=== PATIENT | female | born 1975 | race Caucasian/White ===

== ENCOUNTER 2017-02-23 04:52 | Emergency (ER) | payer MEDICARE, OTHER ==
[2017-02-23 05:29] LABS: HEMOGLOBIN 14.2 gm/dl (12.3-15.3); RED BLOOD COUNT 4.42 M/UL (4.00-5.10)
[2017-02-23 05:43] LABS: WHITE BLOOD COUNT 1.3 K/UL (4.5-11.0)
[2017-02-23 05:47] LABS: BUN/CREATININE RATIO 40 (0-10)
== END 2017-02-23 10:20 | disposition home or self-care (01) ==
LOC: ER1 04:52
PROVIDERS: Family Medicine
DX: I10 Essential (primary) hypertension (principal); R07.9 Chest pain, unspecified; D69.6 Thrombocytopenia, unspecified; D70.9 Neutropenia, unspecified; R00.1 Bradycardia, unspecified; F17.200 Nicotine dependence, unspecified, uncomplicated; Z88.0 Allergy status to penicillin; Z88.2 Allergy status to sulfonamides; Z79.899 Other long term (current) drug therapy
CPT/HCPCS: 36415; 71010; 80053; 82550; 82553; 83874; 84484; 85025; 93005; 99284; J7050; Q9963

== ENCOUNTER 2021-01-08 16:34 | Emergency (ER) | payer OTHER ==
[2021-01-08 17:29] LABS: RED BLOOD COUNT 2.56 M/UL (4.00-5.10)
[2021-01-08 17:54] LABS: BUN/CREATININE RATIO 24 (0-10)
[2021-05-27] MEDS ORDERED: ONDANSETRON HCL8 MG PO (23:03)
[2021-05-27] MEDS ORDERED: MIDODRINE HCL5 MG PO (23:10)
[2021-05-27] MEDS ORDERED: HUMALOG100 UNIT/3 SC (23:12)
== END 2021-01-08 19:56 | disposition short-term general hospital (02) ==
LOC: ER1 16:34
PROVIDERS: Emergency Medicine
DX: A41.9 Sepsis, unspecified organism (principal); R65.20 Severe sepsis without septic shock; N17.9 Acute kidney failure, unspecified; Z20.822 Contact with and (suspected) exposure to COVID-19; G93.40 Encephalopathy, unspecified; I12.9 Hypertensive chronic kidney disease with stage 1 through stage 4 chronic kidney disease, or unspecified chronic kidney disease; N18.9 Chronic kidney disease, unspecified; Z88.0 Allergy status to penicillin; Z88.2 Allergy status to sulfonamides; Z88.1 Allergy status to other antibiotic agents
CPT/HCPCS: 36415; 36600; 70450; 71045; 80053; 80307; 81001; 82140; 82550; 82553; 82803; 83605; 83690; 83735; 83874; 83880; 84100; 84439; 84443; 84484; 85025; 85610; 85730; 87040; 87086; 93005; 96365; 96375; 99285; G0480; J0692; J1335; J7030; U0002

== ENCOUNTER 2021-05-27 11:55 | Inpatient (IN) | payer MEDICARE, OTHER ==
[~2021-05-27] VITALS: Ht 172.7 cm; Wt 125.2 kg
[2021-05-27 12:10] LABS: HEMOGLOBIN 11.1 gm/dl (12.3-15.3); RED BLOOD COUNT 3.48 M/UL (4.00-5.10); WHITE BLOOD COUNT 2.2 K/UL (4.5-11.0)
[2021-05-27 17:28] LABS: BODY FLUID SOURCE ASCITES
[2021-05-27 17:29] LABS: MONONUCLEAR CELLS 93 %; POLYMORPHONUCLEAR 7 %; RBC (AUTOMATED) 9600 10^6; WBC (AUTOMATED) 56 10^3
[2021-05-27] MEDS ORDERED: LANTUS100 UNIT/1 SQ (23:01)
[2021-05-27] MEDS ORDERED: IPRAT-ALBUT 0.5-3 ML INH (23:01)
[2021-05-27] MEDS ORDERED: SPIRONOLACTONE100 MG PO (23:02)
[2021-05-27] MEDS ORDERED: BUMETANIDE1 MG PO (23:02)
[2021-05-27] MEDS ORDERED: PHENERGAN 25 MG25 M1 PO (23:02)
[2021-05-27] MEDS ORDERED: CLARITIN10 M2 PO (23:03)
[2021-05-27] MEDS ORDERED: ACIDOPHILUS1 EAC3 PO (23:04)
[2021-05-27] MEDS ORDERED: MIRALAX17 GM PO (23:04)
[2021-05-27] MEDS ORDERED: GABAPENTIN600 MG PO (23:05)
[2021-05-27] MEDS ORDERED: XIFAXAN550 MG PO (23:05)
[2021-05-27] MEDS ORDERED: MS CONTIN30 MG PO (23:05)
[2021-05-27] MEDS ORDERED: LACTULOSE10 GM/15 M PO (23:07)
[2021-05-27] MEDS ORDERED: PROTONIX 40 MG40 M1 PO (23:07)
[2021-05-27] MEDS ORDERED: CLONIDINE HCL0.2 MG PO (23:07)
[2021-05-27] MEDS ORDERED: METOCLOPRAMIDE H5 MG PO (23:08)
[2021-05-27] MEDS ORDERED: K-TAB ER10 MEQ PO (23:09)
[2021-05-27] MEDS ORDERED: OPSUMIT10 MG PO (23:11)
[2021-05-27] MEDS ORDERED: ADEMPAS2.5 MG PO (23:11)
[2021-05-28 07:43] LABS: HEMOGLOBIN 9.6 gm/dl (12.3-15.3); RED BLOOD COUNT 3.05 M/UL (4.00-5.10); WHITE BLOOD COUNT 2.5 K/UL (4.5-11.0)
[2021-05-28] MEDS ORDERED: ROPINIROLE HCL2 MG PO (23:11)
== END 2021-05-28 19:30 | disposition left against medical advice (07) | DRG 441 ==
LOC: ER1 11:55 → PROG CARE 17:52 → CDU 17:52 → PROG CARE 22:04
PROVIDERS: Family Medicine; ADMIT Internal Medicine
PROC: 5A09357 Assistance with Respiratory Ventilation, Less than 24 Consecutive Hours, Continuous Positive Airway Pressure (ICD-10-PCS; principal; 2021-05-27)
DX: K72.90 Hepatic failure, unspecified without coma (principal); G93.41 Metabolic encephalopathy; G92 Toxic encephalopathy; J96.21 Acute and chronic respiratory failure with hypoxia; D61.818 Other pancytopenia; I85.00 Esophageal varices without bleeding; E66.2 Morbid (severe) obesity with alveolar hypoventilation; E87.2 Acidosis; N17.9 Acute kidney failure, unspecified; Z68.41 Body mass index [BMI] 40.0-44.9, adult; Z53.29 Procedure and treatment not carried out because of patient's decision for other reasons; K74.69 Other cirrhosis of liver; I95.9 Hypotension, unspecified; E11.9 Type 2 diabetes mellitus without complications; E11.40 Type 2 diabetes mellitus with diabetic neuropathy, unspecified; E88.09 Other disorders of plasma-protein metabolism, not elsewhere classified; R79.1 Abnormal coagulation profile; T40.2X5A Adverse effect of other opioids, initial encounter; Z79.4 Long term (current) use of insulin; Z88.0 Allergy status to penicillin; Z90.710 Acquired absence of both cervix and uterus; Z72.0 Tobacco use; Z90.81 Acquired absence of spleen; Y92.89 Other specified places as the place of occurrence of the external cause
CPT/HCPCS: 0240U; 36415; 36600; 70450; 71250; 80053; 80307; 81001; 82140; 82550; 82553; 82803; 82962; 83605; 83690; 83735; 83874; 84484; 84703; 85025; 85610; 87040; 87070; 87205; 89051; 94660; 94760; 99285; J1956; J2310; P9047; U0002

== ENCOUNTER 2021-07-21 13:59 | Inpatient (IN) | payer MEDICARE, OTHER ==
[~2021-07-21] VITALS: Ht 172.7 cm; Wt 128.0 kg
[~2021-07-21 13:59] MED LIST: ACIDOPHILUS1 EAC3 PO; ADEMPAS2.5 MG PO; BUMETANIDE1 MG PO; CLARITIN10 M2 PO; CLONIDINE HCL0.2 MG PO; GABAPENTIN600 MG PO; IPRAT-ALBUT 0.5-3 ML INH; K-TAB ER10 MEQ PO; LACTULOSE10 GM/15 M PO; LANTUS100 UNIT/1 SQ; METOCLOPRAMIDE H5 MG PO; MIRALAX17 GM PO; MS CONTIN30 MG PO; OPSUMIT10 MG PO; PHENERGAN 25 MG25 M1 PO; PROTONIX 40 MG40 M1 PO; ROPINIROLE HCL2 MG PO; SPIRONOLACTONE100 MG PO; XIFAXAN550 MG PO
[2021-07-21 14:49] LABS: HEMOGLOBIN 9.6 gm/dl (12.3-15.3); RED BLOOD COUNT 2.98 M/UL (4.00-5.10); WHITE BLOOD COUNT 4.2 K/UL (4.5-11.0)
[2021-07-21 18:13] LABS: HEMOGLOBIN 9.2 gm/dl (12.3-15.3); RED BLOOD COUNT 2.89 M/UL (4.00-5.10)
[2021-07-21 18:22] LABS: WHITE BLOOD COUNT 10.8 K/UL (4.5-11.0)
[2021-07-22 03:59] LABS: HEMOGLOBIN 8.1 gm/dl (12.3-15.3)
[2021-07-22 04:00] LABS: RED BLOOD COUNT 2.53 M/UL (4.00-5.10)
[2021-07-22] MEDS ORDERED: ONDANSETRON HCL8 MG PO (12:50)
[2021-07-22] MEDS ORDERED: MAGOX 400400 MG PO (12:51)
[2021-07-22] MEDS ORDERED: MIDODRINE HCL5 MG PO (23:10)
[2021-07-22] MEDS ORDERED: NOVOLOG FL100 UNIT/1 INJ (23:12)
[2021-07-23 05:19] LABS: HEMOGLOBIN 8.1 gm/dl (12.3-15.3); RED BLOOD COUNT 2.54 M/UL (4.00-5.10); WHITE BLOOD COUNT 13.8 K/UL (4.5-11.0)
[2021-07-24 01:11] LABS: HEMOGLOBIN 8.5 gm/dl (12.3-15.3); RED BLOOD COUNT 2.65 M/UL (4.00-5.10)
[2021-07-24 01:12] LABS: WHITE BLOOD COUNT 25.3 K/UL (4.5-11.0)
[2021-07-24 03:59] LABS: HEMOGLOBIN 8.7 gm/dl (12.3-15.3); RED BLOOD COUNT 2.7 M/UL (4.00-5.10); WHITE BLOOD COUNT 26.5 K/UL (4.5-11.0)
[2021-07-24 17:13] LABS: BORDETELLA PARAPERTUSSIS Not Detected (Not Detectd); BORDETELLA PERTUSSIS Not Detected (Not Detectd); CHLAMYDIA PNEUMONIAE Not Detected (Not Detectd); CORONAVIRUS HKU1 Not Detected (Not Detectd); CORONAVIRUS NL63 Not Detected (Not Detectd); CORONAVIRUS OC43 Not Detected (Not Detectd); CORONOAVIRUS 229E Not Detected (Not Detectd); HUMAN METAPNEUMOVIRUS Not Detected (Not Detectd); HUMAN RHINOVIRUS/ENTEROVIRUS Not Detected (Not Detectd); INFLUENZA A Not Detected (Not Detectd); INFLUENZA B Not Detected (Not Detectd); MYCOPLASMA PNEUMONIAE Not Detected (Not Detectd); PARAINFLUENZA VIRUS 1 Not Detected (Not Detectd); PARAINFLUENZA VIRUS 2 Not Detected (Not Detectd); PARAINFLUENZA VIRUS 3 Not Detected (Not Detectd); PARAINFLUENZA VIRUS 4 Not Detected (Not Detectd); RESPIRATORY SYNCYTIAL VIRUS Not Detected (Not Detectd)
[2021-07-24 18:32] LABS: SARS-CoV-2 NOT DETECTED (Not Detectd)
[2021-07-25 11:16] LABS: HBSAG SCREEN Negative (Negative); HEP A AB, IGM Negative (Negative); HEP B CORE AB, IGM Negative (Negative); HEP C VIRUS AB <0.1 (0.0-0.9)
== END 2021-07-24 23:00 | disposition short-term general hospital (02) | DRG 871 ==
LOC: ER1 13:59 → CDU 07-24 09:34 → CCU 07-24 12:37
PROVIDERS: Emergency Medicine; Internal Medicine Nephrology; Internal Medicine Pulmonary Disease; ADMIT Internal Medicine
PROC: 30233L1 Transfusion of Nonautologous Fresh Plasma into Peripheral Vein, Percutaneous Approach (ICD-10-PCS; principal; 2021-07-21)
PROC: 30233R1 Transfusion of Nonautologous Platelets into Peripheral Vein, Percutaneous Approach (ICD-10-PCS; 2021-07-21)
PROC: 0BH18EZ Insertion of Endotracheal Airway into Trachea, Via Natural or Artificial Opening Endoscopic (ICD-10-PCS; 2021-07-21)
PROC: 5A1935Z Respiratory Ventilation, Less than 24 Consecutive Hours (ICD-10-PCS; 2021-07-21)
PROC: B24BZZZ Ultrasonography of Heart with Aorta (ICD-10-PCS; 2021-07-21)
PROC: 3E033XZ Introduction of Vasopressor into Peripheral Vein, Percutaneous Approach (ICD-10-PCS; 2021-07-21)
PROC: 05HM33Z Insertion of Infusion Device into Right Internal Jugular Vein, Percutaneous Approach (ICD-10-PCS; 2021-07-21)
PROC: B543ZZA Ultrasonography of Right Jugular Veins, Guidance (ICD-10-PCS; 2021-07-21)
DX: A41.89 Other specified sepsis (principal); J96.00 Acute respiratory failure, unspecified whether with hypoxia or hypercapnia; R65.21 Severe sepsis with septic shock; G92 Toxic encephalopathy; K72.00 Acute and subacute hepatic failure without coma; J69.0 Pneumonitis due to inhalation of food and vomit; N17.0 Acute kidney failure with tubular necrosis; K76.7 Hepatorenal syndrome; D61.818 Other pancytopenia; E87.2 Acidosis; N30.00 Acute cystitis without hematuria; D68.9 Coagulation defect, unspecified; J98.11 Atelectasis; K76.6 Portal hypertension; D63.1 Anemia in chronic kidney disease; B96.1 Klebsiella pneumoniae [K. pneumoniae] as the cause of diseases classified elsewhere; K75.81 Nonalcoholic steatohepatitis (NASH); I12.9 Hypertensive chronic kidney disease with stage 1 through stage 4 chronic kidney disease, or unspecified chronic kidney disease; N18.30 Chronic kidney disease, stage 3 unspecified; E88.09 Other disorders of plasma-protein metabolism, not elsewhere classified; I08.1 Rheumatic disorders of both mitral and tricuspid valves; I27.20 Pulmonary hypertension, unspecified; G47.33 Obstructive sleep apnea (adult) (pediatric); E87.5 Hyperkalemia; E11.22 Type 2 diabetes mellitus with diabetic chronic kidney disease; K74.60 Unspecified cirrhosis of liver; Z79.4 Long term (current) use of insulin; Z86.16 Personal history of COVID-19; Z90.81 Acquired absence of spleen; Z88.0 Allergy status to penicillin; Z88.2 Allergy status to sulfonamides; Z88.1 Allergy status to other antibiotic agents; Z88.5 Allergy status to narcotic agent; Z90.710 Acquired absence of both cervix and uterus; Z90.49 Acquired absence of other specified parts of digestive tract; Z98.890 Other specified postprocedural states
CPT/HCPCS: ECHO; 31500; 36415; 36556; 36600; 43752; 51702; 70450; 71045; 71250; 80048; 80053; 80074; 81001; 82140; 82550; 82553; 82803; 82962; 83036; 83605; 83690; 83735; 83880; 84484; 85025; 85027; 85049; 85610; 85730; 86850; 86870; 86900; 86901; 86902; 86920; 86922; 86927; 87040; 87077; 87081; 87086; 87186; 87633; 93005; 93306; 94002; 94003; 94640; 94664; 94760; 96365; 96367; 96375; 96376; 99291; C1751; C9113; J0330; J0360; J0878; J1335; J1940; J2020; J2185; J2250; J2310; J2354; J2370; J2704; J7030; J7050; J7070; P9017; P9035; P9047; U0002